=== PATIENT | male | born 1990 | race Caucasian/White ===

== ENCOUNTER 2019-01-26 09:15 | Emergency (ER) | payer MEDICAID ==
[~2019-01-26] VITALS: Ht 185.4 cm; Wt 81.8 kg
[2019-01-26] MEDS ORDERED: AMOX-580 PO (10:07)
[2019-01-26] MEDS ORDERED: amox tr/potassium clavulanate 875/125mg TAB PO ONE (10:10)
[2019-01-26 10:14] VITALS: BP 122/66
== END 2019-01-26 10:15 | disposition home or self-care (01) ==
LOC: ER 09:16
DX: K02.9 Dental caries, unspecified (principal); K08.89 Other specified disorders of teeth and supporting structures
CPT/HCPCS: 99283

== ENCOUNTER 2019-03-27 17:28 | Emergency (ER) | payer MEDICAID ==
[~2019-03-27] VITALS: Ht 182.9 cm; Wt 80.5 kg
--- NOTE | 2019-03-27 18:00 | NUR ---
refusing treatment, has a headache but doesnt want anything for it, he spoke with the provider and stated that he "just wants [email or web address] go home."
[2019-03-27 18:07] VITALS: BP 118/75
[2019-03-28] MEDS ORDERED: AMOX-580 PO (20:46)
[2019-03-28] MEDS ORDERED: LACT1CAP65 PO (20:46)
[2019-03-28] MEDS ORDERED: HYDR-4353 PO (20:46)
== END 2019-03-27 18:08 | disposition home or self-care (01) ==
LOC: ER 17:29
DX: G40.909 Epilepsy, unspecified, not intractable, without status epilepticus (principal); F11.20 Opioid dependence, uncomplicated
CPT/HCPCS: 99281; 99283

== ENCOUNTER 2019-03-28 20:14 | Emergency (ER) | payer MEDICAID ==
[~2019-03-28] VITALS: Ht 182.9 cm; Wt 80.5 kg
[2019-03-28] MEDS ORDERED: HYDR-4353 PO (20:46)
[2019-03-28] MEDS ORDERED: AMOX-580 PO (20:46)
[2019-03-28] MEDS ORDERED: LACT1CAP65 PO (20:46)
[2019-03-28] MEDS ORDERED: HYDROcodone/acetaminophen 10/325mg tab PO ONE (20:50)
[2019-03-28] MEDS ORDERED: naproxen 500mg tablet PO ONE (20:50)
[2019-03-28] MEDS ORDERED: amox tr/potassium clavulanate 875/125mg TAB PO ONE (20:50)
[2019-03-28 21:03] VITALS: BP 127/89
== END 2019-03-28 21:05 | disposition home or self-care (01) ==
LOC: ER 20:15
DX: K04.7 Periapical abscess without sinus (principal); L03.211 Cellulitis of face; F17.200 Nicotine dependence, unspecified, uncomplicated; Z79.899 Other long term (current) drug therapy; Z60.2 Problems related to living alone
CPT/HCPCS: 99284

== ENCOUNTER 2019-11-19 12:40 | Emergency (ER) | payer MEDICAID ==
[~2019-11-19] VITALS: Ht 182.9 cm; Wt 71.2 kg
[~2019-11-19 12:40] MED LIST: LACT1CAP65 PO
[2019-11-19 12:44] VITALS: BP 131/89
[2019-11-19] MEDS ORDERED: HYDROcodone/acetaminophen 10/325mg tab PO ONE (13:20)
[2019-11-19] MEDS ORDERED: ONDA4TAB6 PO (13:47)
[2019-11-19] MEDS ORDERED: PENI500T2 PO (13:47)
[2019-11-19] MEDS ORDERED: HYDR-4353 PO (13:47)
== END 2019-11-19 14:04 | disposition home or self-care (01) ==
LOC: ER 12:40
DX: M27.3 Alveolitis of jaws (principal)
CPT/HCPCS: 99283

== ENCOUNTER 2021-05-10 19:03 | Emergency (ER) | payer MEDICAID ==
[~2021-05-10] VITALS: Ht 182.9 cm; Wt 77.3 kg
[~2021-05-10 19:03] MED LIST changes: +LIDOcaine 1% W/epiNEPHrine 1:200,000 10ml vial ONE; +ONDA4TAB6 PO
[2021-05-10 19:42] VITALS: BP 107/80
[2021-05-10] MEDS ORDERED: LIDOcaine 1% W/epiNEPHrine 1:200,000 10ml vial IJ ONE (22:55)
[2021-05-10] MEDS ORDERED: bacitracin 15gm ointment TP ONE (22:55)
[2021-05-11] MEDS ORDERED: CEPH250T PO (00:01)
== END 2021-05-11 00:23 | disposition home or self-care (01) ==
LOC: ER 19:03
DX: S61.411A Laceration without foreign body of right hand, initial encounter (principal); Z72.89 Other problems related to lifestyle; Z60.2 Problems related to living alone; Z79.2 Long term (current) use of antibiotics; Z79.899 Other long term (current) drug therapy; X58.XXXA Exposure to other specified factors, initial encounter; Y93.89 Activity, other specified; Y92.89 Other specified places as the place of occurrence of the external cause; Y99.8 Other external cause status
CPT/HCPCS: 12002; 99283